=== PATIENT | female | born 1990 | race Caucasian/White ===

== ENCOUNTER 2019-11-04 12:29 | Emergency (ER) | payer OTHER ==
[~2019-11-04] VITALS: Ht 154.9 cm; Wt 59.0 kg
[2019-11-04 12:30] VITALS: BP_SYST 116
--- NOTE | 2019-11-04 12:35 | NUR ---
Patient triaged and placed in waiting room. VSS and patient appears in no acute distress at this time. Accompanied by FAMILY, awaiting available bed, and MD notified of need for MSE.
--- NOTE | 2019-11-04 14:00 | NUR ---
BROUGHT BACK TO BED #8 AND REPORT GIVEN TO MIHIR
--- NOTE | 2019-11-04 14:20 | NUR ---
Patient arrived via POV, AAOx4, and ambulatory with steady gait. Patient c/c of vaginal bleeding. Patients first , had intercourse and had pink tinged watery discharge yesterday, dark discharge today. Patient was seen at another facility regarding this, sent home after ultrasound that showed a sack, and not a heartbeat. Patient is 5 weeks per ultrasound per patient. Patient states no nausea, vomiting, diarrhea, constipation, or urinary problems. Will continue to follow up and monitor.
--- NOTE | 2019-11-04 14:40 | NUR ---
ER at bedside examining patient.
[2019-11-04 14:55] VITALS: BP_SYST 116
--- NOTE | 2019-11-04 14:55 | NUR ---
Patient given written and verbal discharge instructions and verbalizes understanding, patient did not receive paperwork, left prior to receiving. Patient in stable condition. ID arm band not removed. Rx not given. Patient educated on pain management and to follow up with PMD. Pain Scale 0/10. Opportunity for questions provided and answered. Medication side effect fact sheet provided.
== END 2019-11-04 14:55 | disposition home or self-care (01) ==
LOC: SED 12:29
DX: O20.9 Hemorrhage in early pregnancy, unspecified (principal); Z3A.01 Less than 8 weeks gestation of pregnancy
CPT/HCPCS: 99281

== ENCOUNTER 2019-11-05 15:05 | Emergency (ER) | payer OTHER ==
[~2019-11-05] VITALS: Ht 154.9 cm; Wt 59.0 kg
[2019-11-05 15:19] VITALS: BP_SYST 129
--- NOTE | 2019-11-05 17:13 | NUR ---
Patient to ER bed 05 to gown for evaluation. Side rails up.
--- NOTE | 2019-11-05 17:46 | NUR ---
PATIENT PRESENTS TO THE ER WITH THREE DAY HX OF VAGINAL BLEEDING WITH LOWER PELVIC CRAMPING; NO TRAUMA, NO OTHER REMARKABLE S/S; TO ER #5 AT 1716
--- NOTE | 2019-11-05 17:47 | NUR ---
ERMD EVALUATION AT 1600
[2019-11-05 17:50] LABS: BILIRUBIN,URINE NEGATIVE (NEGATIVE); BLOOD, URINE NEGATIVE (NEGATIVE); CLARITY/URINE CLEAR (CLEAR); COLOR,URINE YELLOW (YELLOW); GLUCOSE,URINE NEGATIVE (NEGATIVE); KETONES,URINE NEGATIVE (NEGATIVE); LEUKOCYTE ESTERASE ,URINE NEGATIVE (NEGATIVE); NITRITE, URINE POSITIVE (NEGATIVE); PH,URINE 7.5 (5.0-8.0); PROTEIN URINE NEGATIVE (NEGATIVE); UROBILINOGEN,URINE 0.2 (0.2-1.0)
--- NOTE | 2019-11-05 17:51 | NUR ---
ASSESSMENT; PATIENT CLEARED BY ERMD; PREPARED FOR DISCHARGE; ACI GIVEN AND PATIENT INDICTATED FULL UNDERSTANDING; DISCHARGED WITH FAMILY; UNCHANGED
[2019-11-05 17:52] VITALS: BP_SYST 129
[2019-11-05 18:01] LABS: BACTERIA,URINE MANY /HPF (None Seen); RBC,URINE 0-3 /HPF (0-3); WBC,URINE 0-3 /HPF (0-3)
== END 2019-11-05 17:52 | disposition home or self-care (01) ==
LOC: SED 15:05
DX: O20.0 Threatened abortion (principal); O23.41 Unspecified infection of urinary tract in pregnancy, first trimester; R03.0 Elevated blood-pressure reading, without diagnosis of hypertension; Z3A.01 Less than 8 weeks gestation of pregnancy
CPT/HCPCS: 36415; 81000-TC; 84702-TC; 99283

== ENCOUNTER 2019-12-25 16:48 | Emergency (ER) | payer MEDICAID, OTHER ==
[~2019-12-25] VITALS: Ht 154.9 cm; Wt 62.6 kg
[2019-12-25 17:09] VITALS: BP_SYST 111
--- NOTE | 2019-12-25 20:10 | NUR ---
Patient to ER bed 07 for evaluation. Side rails up.
--- NOTE | 2019-12-25 20:15 | NUR ---
Pt 13 weeks , AAOx4 ambulated into ED c/o RLQ pain radiating to right lower back pain x 2 days. Skin pink dry and warm, breathing even and unlabored. No other injuries/complaints per pt/noted. Will continue to monitor.
--- NOTE | 2019-12-25 20:40 | NUR ---
ER CHER Rayo examining patient.
[2019-12-25 21:00] LABS: BILIRUBIN,URINE NEGATIVE (NEGATIVE); BLOOD, URINE 2+ (NEGATIVE); COLOR,URINE YELLOW (YELLOW); GLUCOSE,URINE NEGATIVE (NEGATIVE); KETONES,URINE 1+ (NEGATIVE); LEUKOCYTE ESTERASE ,URINE TRACE (NEGATIVE); NITRITE, URINE POSITIVE (NEGATIVE); PROTEIN URINE NEGATIVE (NEGATIVE); UROBILINOGEN,URINE 0.2 (0.2-1.0)
[2019-12-25 21:23] LABS: CLARITY/URINE HAZY (CLEAR)
[2019-12-25 21:33] LABS: BACTERIA,URINE MANY /HPF (None Seen)
[2019-12-25 21:34] LABS: MUCUS,URINE None Seen /LPF (None Seen)
--- NOTE | 2019-12-25 21:37 | NUR ---
Patient given written and verbal discharge instructions and verbalizes understanding. ER DAIRY FARMER Perri discussed with patient the results and treatment provided. Patient in stable condition. ID arm band removed. Rx of Macrobid given. Patient educated on pain management and to follow up with PMD. Pain Scale 0. Opportunity for questions provided and answered. Medication side effect fact sheet provided.
[2019-12-25 21:39] VITALS: BP_SYST 124
== END 2019-12-25 21:39 | disposition home or self-care (01) ==
LOC: SED 16:48
DX: O23.42 Unspecified infection of urinary tract in pregnancy, second trimester (principal); O26.891 Other specified pregnancy related conditions, first trimester; R10.2 Pelvic and perineal pain; Z3A.14 14 weeks gestation of pregnancy; Z86.2 Personal history of diseases of the blood and blood-forming organs and certain disorders involving the immune mechanism
CPT/HCPCS: 36415; 76801; 81000-TC; 84702-TC; 87086; 99284